=== PATIENT | female | born 1970 | race Caucasian/White ===

== ENCOUNTER → 2017-03-30 | Outpatient (CLI) | payer MEDICAID ==
--- NOTE | 2017-03-30 16:02 | XR ---
Abdomen HISTORY: Abdomen pain, [id number], constipation, R 1013 Single frontal view of the abdomen, no comparisons Spina bifida occulta is noted at L5. There is a spinal curvature. Lung bases are clear. No pneumoperi toneum or bowel obstruction. No pathologic calcification. Probable phleboliths present within the pel vis. IMPRESSION: No acute abnormalities evident.
== END ==
LOC: RADXRYALE 15:10
PROVIDERS: ATTEND Family Medicine
DX: R10.13 Epigastric pain (principal); K59.00 Constipation, unspecified
CPT/HCPCS: 74000

== ENCOUNTER → 2017-05-22 | Outpatient (CLI) | payer MEDICAID ==
--- NOTE | 2017-05-22 14:32 | CT ---
EXAMINATION TYPE: CT abdomen w con DATE OF EXAM: 05/22/2017 COMPARISON: NONE HISTORY: Epigastric abdominal pain CT DLP: 424 mGycm Automated exposure control for dose reduction was used. TECHNIQUE: Helical acquisition of images was performed from the lung bases through the top of iliac crest to include entire abdomen. CONTRAST: Performed with Oral Contrast and with IV Contrast, patient injected with 100 ml mL of Omnipaque 300. FINDINGS: LUNG BASES: No significant abnormality is appreciated. LIVER/GB: No significant abnormality is appreciated. PANCREAS: No significant abnormality is seen. SPLEEN: No significant abnormality is seen. ADRENALS: No significant abnormality is seen. KIDNEYS: No significant abnormality is seen. BOWEL: No significant abnormality is seen. LYMPH NODES: No significant abnormality is seen. OSSEOUS STRUCTURES: Bilateral spondylolysis L5. Degenerative disc disease L5-S1. OTHER: Atherosclerotic change of the aorta. IMPRESSION: NO ACUTE PROCESS. MULTIPLE VARICES ARE SEEN IN THE REGION OF THE LEFT UPPER QUADRANT NEAR THE RENAL B ED.
== END | disposition home or self-care (01) ==
LOC: RADCTMAIN 12:51
PROVIDERS: ATTEND Family Medicine
DX: R19.7 Diarrhea, unspecified (principal); R10.13 Epigastric pain; I86.8 Varicose veins of other specified sites
CPT/HCPCS: 74160; Q9967

== ENCOUNTER 2018-10-19 05:10 | Emergency (ER) | payer MEDICAID ==
[2018-10-19] MEDS ORDERED: METOCLOPRAMIDE 5 MG/ML 2 ML VIAL IVP STA (06:23)
[2018-10-19] MEDS ORDERED: diphenhydrAMINE 50 MG/ML 1 ML VIAL IVP STA (06:23)
[2018-10-19] MEDS ORDERED: SODIUM CHLORIDE 0.9% 1,000 ML IV ONE (06:23)
[2018-10-19] MEDS ORDERED: KETOROLAC 30 MG/ML 1 ML VIAL IVP STA (06:23)
[2018-10-19] MEDS ORDERED: IPRATROPIUM-ALBUTEROL 3 ML NEB INHALATION STA (06:31)
--- NOTE | 2018-10-19 06:31 | ED ---
Headache HPI - General Chief Complaint: Headache Stated Complaint: headache, fever Time Seen by Provider: 10/19/18 05:31 Mode of arrival: ambulatory Limitations: no limitations - History of Present Illness Initial Comments: There is a previously healthy 48-year-old female presents the emergency department today for evaluation of fevers and headaches. Patient reports that she's been suffering from upper respiratory symptoms, congestion, fullness in her ears and nonproductive cough. She was seen and evaluated by her primary care physician, influenza swab was negative she was diagnosed with bronchitis she was treated with IM injection of steroids and prescribed azithromycin. Patient reports she's been compliant with these medications for the past 24 hours. Despite being compliant with medications patient reports she continues to have a headache which she describes as fullness in her head worse when she tries to blow her nose she can feel pressure in her ears she also feels pressure in her sinuses. Patient reports that she continues to have intermittent fevers as high as 102. She's been alternating Tylenol Motrin. She has not tried Excedrin for the headache she's not tried any decongestants or Flonase. She did use Afrin one time last night with minimal improvement in her symptoms. - Related Data Home Medications Medication Instructions Recorded Confirmed Azithromycin [Zithromax Z-pack] See Taper PO DAILY 10/19/18 10/19/18 Previous Rx's Medication Instructions Recorded Fluticasone Nasal [place] [Flonase 2 spr EA NOSTRIL DAILY #1 bottle 10/19/18 Nasal [place]] Loratadine [Claritin] 10 mg PO DAILY #30 tab 10/19/18 guaiFENesin [Mucinex] 600 mg PO BID #30 tab 10/19/18 Allergies Allergy/AdvReac Type Severity Reaction Status Date / Time amoxicillin Allergy Vomiting Verified 10/19/18 06:59 cephalexin [From Keflex] Allergy Vomiting Verified 10/19/18 06:59 oral steriods Allergy Vomiting Uncoded 10/19/18 05:21 Review of Systems ROS Statement: Those systems with pertinent positive or pertinent negative responses have been documented in the HPI. ROS Other: All systems not noted in ROS Statement are negative. Past Medical History Past Medical History: No Reported History History of Any Multi-Drug Resistant Organisms: None Reported Past Surgical History: Section Past Psychological History: No Psychological Hx Reported Smoking Status: Current every day smoker Past Alcohol Use History: None Reported Past Drug Use History: None Reported General Exam - General Exam Comments Initial Comments: Physical Exam GENERAL: Patient is well-developed and well-nourished. Patient is nontoxic and well- hydrated and is in no distress. HENT: Normocephalic, Atraumatic. EYES: PERRL, EOMI PULMONARY: Unlabored respirations. No audible rales rhonchi or wheezing was noted. CARDIOVASCULAR: There is a regular rate and rhythm without any murmurs gallops or rubs. ABDOMEN: Soft and nontender with normal bowel sounds. SKIN: Skin is clear with no lesions or rashes and otherwise unremarkable. : Deferred NEUROLOGIC: Patient is alert and oriented x3. Moving all extremities spontaneously MUSCULOSKELETAL: Normal extremities with adequate strength and full range of motion. No lower extremity swelling or edema. No calf tenderness. PSYCHIATRIC: Normal psychiatric evaluation. Limitations: no limitations Limitations: no limitations Course Vital Signs 10/19/18 10/19/18 10/19/18 05:16 07:21 07:29 Temperature 99.8 F H Pulse Rate 92 78 79 Respiratory 16 16 16 Rate Blood Pressure 104/63 O2 Sat by Pulse 97 Oximetry Medical Decision Making - Medical Decision Making Patient was seen and evaluated history was obtained from the patient was seen and evaluated by primary care yesterday was influenza negative chest x-ray was unremarkable she was treated with steroids patient has persistent fevers URI-like symptoms as well as headache Patient with no meningeal signs for range of motion of the neck Does have some tenderness to palpation of maxillary and frontal sinuses as well as fullness in the ears, inflamed nasal turbinates I suspect patient's symptoms are due to dehydration and viral URI labs IV fluids were ordered Patient does have mild expiratory wheezing DuoNeb was ordered She was reevaluated she reports feeling better after medications and DuoNeb Labs are reviewed patient has leukopenia likely related to viral suppression access patient's agreeable to plan for discharge home supportive care for sinus congestion return parameters were discussed and questions pertaining care were answered. Discharged home in stable condition - Lab Data Result diagrams: 10/19/18 06:30 10/19/18 06:30 Lab Results 10/19/18 10/19/18 10/19/18 Range/Units 06:30 06:30 06:35 WBC 3.2 L (3.8-10.6) k/uL RBC 4.86 (3.80-5.40) m/uL Hgb 15.3 (11.4-16.0) gm/dL Hct 44.1 (34.0-46.0) % MCV 90.8 (80.0-100.0) fL MCH 31.4 (25.0-35.0) pg MCHC 34.6 (31.0-37.0) g/dL RDW 12.2 (11.5-15.5) % Plt Count 98 L (150-450) k/uL Neutrophils % 69 % Lymphocytes % 19 % Monocytes % 9 % Eosinophils % 1 % Basophils % 0 % Neutrophils # 2.2 (1.3-7.7) k/uL Lymphocytes # 0.6 L (1.0-4.8) k/uL Monocytes # 0.3 (0-1.0) k/uL Eosinophils # 0.0 (0-0.7) k/uL Basophils # 0.0 (0-0.2) k/uL Manual Slide Review Performed Sodium 140 (137-145) mmol/L Potassium 4.4 (3.5-5.1) mmol/L Chloride 106 (98-107) mmol/L Carbon Dioxide 27 (22-30) mmol/L Anion Gap 7 mmol/L BUN 12 (7-17) mg/dL Creatinine 0.67 (0.52-1.04) mg/dL Est GFR (CKD-EPI)AfAm >90 (>60 ml/min/1.73 sqM) Est GFR (CKD-EPI)NonAf >90 (>60 ml/min/1.73 sqM) Glucose 96 (74-99) mg/dL Calcium 9.3 (8.4-10.2) mg/dL Total Bilirubin 0.7 (0.2-1.3) mg/dL AST 62 H (14-36) U/L ALT 64 H (9-52) U/L Alkaline Phosphatase 69 (38-126) U/L Total Protein 7.5 (6.3-8.2) g/dL Albumin 4.4 (3.5-5.0) g/dL Urine Color Urine Appearance (Clear) Urine pH (5.0-8.0) Ur Specific [place] (1.001-1.035) Urine Protein (Negative) Urine Glucose (UA) (Negative) Urine Ketones (Negative) Urine Blood (Negative) Urine Nitrite (Negative) Urine Bilirubin (Negative) Urine Urobilinogen (<2.0) mg/dL Ur Leukocyte Esterase (Negative) Urine RBC (0-5) /hpf Urine WBC (0-5) /hpf Ur Squamous Epith Cells (0-4) /hpf Urine Mucus (None) /hpf Urine HCG, Qual Not Detected (Not Detectd) 10/19/18 Range/Units 06:35 WBC (3.8-10.6) k/uL RBC (3.80-5.40) m/uL Hgb (11.4-16.0) gm/dL Hct (34.0-46.0) % MCV (80.0-100.0) fL MCH (25.0-35.0) pg MCHC (31.0-37.0) g/dL RDW (11.5-15.5) % Plt Count (150-450) k/uL Neutrophils % % Lymphocytes % % Monocytes % % Eosinophils % % Basophils % % Neutrophils # (1.3-7.7) k/uL Lymphocytes # (1.0-4.8) k/uL Monocytes # (0-1.0) k/uL Eosinophils # (0-0.7) k/uL Basophils # (0-0.2) k/uL Manual Slide Review Sodium (137-145) mmol/L Potassium (3.5-5.1) mmol/L Chloride (98-107) mmol/L Carbon Dioxide (22-30) mmol/L Anion Gap mmol/L BUN (7-17) mg/dL Creatinine (0.52-1.04) mg/dL Est GFR (CKD-EPI)AfAm (>60 ml/min/1.73 sqM) Est GFR (CKD-EPI)NonAf (>60 ml/min/1.73 sqM) Glucose (74-99) mg/dL Calcium (8.4-10.2) mg/dL Total Bilirubin (0.2-1.3) mg/dL AST (14-36) U/L ALT (9-52) U/L Alkaline Phosphatase (38-126) U/L Total Protein (6.3-8.2) g/dL Albumin (3.5-5.0) g/dL Urine Color Yellow Urine Appearance Clear (Clear) Urine pH 5.5 (5.0-8.0) Ur Specific [place] 1.025 (1.001-1.035) Urine Protein 1+ H (Negative) Urine Glucose (UA) Negative (Negative) Urine Ketones 2+ H (Negative) Urine Blood Moderate H (Negative) Urine Nitrite Negative (Negative) Urine Bilirubin Negative (Negative) Urine Urobilinogen <2.0 (<2.0) mg/dL Ur Leukocyte Esterase Small H (Negative) Urine RBC 16 H (0-5) /hpf Urine WBC 4 (0-5) /hpf Ur Squamous Epith Cells 2 (0-4) /hpf Urine Mucus Many H (None) /hpf Urine HCG, Qual (Not Detectd) Disposition Clinical Impression: URI (upper respiratory infection) Disposition: HOME SELF-CARE Condition: Good Instructions (If sedation given, give patient instructions): Cold Symptoms (ED) Is patient prescribed a controlled substance at d/c from ED?: No Referrals: Davian Talley DO [Primary Care Provider] - 1-2 days
[2018-10-19 06:58] LABS: Basophils % (A) 0 %; Eosinophils % (A) 1 %; HCT 44.1 % (34.0-46.0); HGB 15.3 gm/dL (11.4-16.0); Lymphocytes # (A) 0.6 k/uL (1.0-4.8); Lymphocytes % (A) 19 %; MCH 31.4 pg (25.0-35.0); MCHC 34.6 g/dL (31.0-37.0); MCV 90.8 fL (80.0-100.0); Mean Platelet Volume 6.9; Monocytes # (A) 0.3 k/uL (0-1.0); Monocytes % (A) 9 %; Neutrophils # (A) 2.2 k/uL (1.3-7.7); Neutrophils % (A) 69 %; RBC 4.86 m/uL (3.80-5.40); RDW 12.2 % (11.5-15.5); WBC 3.2 k/uL (3.8-10.6)
[2018-10-19 07:00] LABS: Appearance,Urine Clear (Clear); Bilirubin,Urine Negative (Negative); Blood,Urine Moderate (Negative); Color,Urine Yellow; Glucose,Urine (UA) Negative (Negative); Ketones,Urine 2+ (Negative); Leukocyte Esterase,Urine Small (Negative); Mucus,Urine Many /hpf; Nitrite,Urine Negative (Negative); PH, Urine 5.5 (5.0-8.0); Protein,Urine 1+ (Negative); RBC,Urine 16 /hpf (0-5); Specific Gravity,Urine 1.025 (1.001-1.035); Squamous Epithelial Cell,Urine 2 /hpf (0-4); Urobilinogen,Urine <2.0 mg/dL (<2.0); WBC,Urine 4 /hpf (0-5)
[2018-10-19 07:08] LABS: ALT 64 U/L (9-52); AST 62 U/L (14-36); Albumin 4.4 g/dL (3.5-5.0); Alkaline Phosphatase 69 U/L (38-126); Anion Gap 7 mmol/L; Blood Urea Nitrogen 12 mg/dL (7-17); Calcium 9.3 mg/dL (8.4-10.2); Carbon Dioxide 27 mmol/L (22-30); Chloride 106 mmol/L (98-107); Glucose 96 mg/dL (74-99); Potassium 4.4 mmol/L (3.5-5.1); Sodium 140 mmol/L (137-145); Total Bilirubin 0.7 mg/dL (0.2-1.3); Total Protein 7.5 g/dL (6.3-8.2)
[2018-10-19 07:33] LABS: Platelet Count 98 k/uL (150-450)
[2018-10-19 07:54] VITALS: BP 97/60; PULSE 82; RESP 18; TEMP 98.8
== END 2018-10-19 07:45 | disposition home or self-care (01) ==
LOC: EC 05:10
DX: J06.9 Acute upper respiratory infection, unspecified (principal); D72.819 Decreased white blood cell count, unspecified; F17.200 Nicotine dependence, unspecified, uncomplicated; Z88.0 Allergy status to penicillin; Z88.1 Allergy status to other antibiotic agents; Z88.8 Allergy status to other drugs, medicaments and biological substances
CPT/HCPCS: 36415; 94640; 80053; 85025; 81001; 81025; 99284; 96374; 96375 ×2; 96361; J1200; J2765; J1885

== ENCOUNTER → 2018-12-14 | Outpatient (CLI) | payer MEDICAID ==
--- NOTE | 2018-12-14 08:09 | CT ---
EXAMINATION TYPE: CT sinus wo con DATE OF EXAM: 12/14/2018 COMPARISON: 01/17/2015 CT brain HISTORY: Chronic sinusitis CT DLP: 635.1 mGycm. Automated Exposure Control for Dose Reduction was Utilized. TECHNIQUE: CT scan of the sinuses is performed without contrast, axial images are obtained, coronal r eformatted images are also reviewed. FINDINGS: There is trace mucosal thickening of the medial wall of the left maxillary sinus such as on coronal series 6 image 25. Few inspissated secretions are seen within the ethmoid sinuses. The sphen oid sinuses, frontal sinuses and visualized mastoid air cells are well aerated. No middle ear cavity fluid is seen. The ostiomeatal complexes are patent although slightly narrowed secondary to mucosal t hickening. No Bryan cells or delmer bullosa. There is rightward nasal septal deviation. Very minimal left inferior nasal turbinate mucosal hypertrophy is seen. Frontal recesses are patent. Exam is not optimized for evaluation of the intracranial structures. Orbits are grossly symmetric. Osseous struct ures are grossly intact. IMPRESSION: 1. Trace mucosal thickening within the left maxillary sinus, ethmoid sinuses, and along the ostiomeat al complexes slightly narrowing the bilateral ostiomeatal complexes although they remain patent. 2. Mild rightward nasal septal deviation. 3. Very minimal left inferior nasal turbinate mucosal hypertrophy.
== END | disposition home or self-care (01) ==
LOC: RADCTMAIN 07:44
PROVIDERS: ATTEND Otolaryngology
DX: J34.3 Hypertrophy of nasal turbinates (principal); J34.2 Deviated nasal septum; J32.9 Chronic sinusitis, unspecified
CPT/HCPCS: 70486

== ENCOUNTER → 2021-12-09 | Outpatient (CLI) | payer BC ==
--- NOTE | 2021-12-09 12:23 | XR ---
EXAMINATION TYPE: XR chest 2V DATE OF EXAM: 12/09/2021 COMPARISON: NONE HISTORY: Palpitations and chest pain TECHNIQUE: Frontal and lateral views of the chest are obtained. FINDINGS: There is no focal air space opacity, pleural effusion, or pneumothorax seen. The cardiac silhouette size is within normal limits. Prominent lung volumes noted. The osseous structures are in tact, there is a mild spinal curvature. IMPRESSION: No acute cardiopulmonary process.
== END | disposition home or self-care (01) ==
LOC: RADXRYALE 09:43
PROVIDERS: ATTEND Family Medicine
DX: R00.2 Palpitations (principal); R07.89 Other chest pain
CPT/HCPCS: 71046

== ENCOUNTER → 2021-12-13 | Outpatient (CLI) | payer BC ==
--- NOTE | 2021-12-19 15:14 | P.HOLTER ---
48 Hour Holter monitor note: Patient wore a Holter monitor for 48 hrs from 12/13/2021 until 12/15/2021. Findings: Patient's baseline heart rate was sinus rhythm. There were no signficant atrial fibrillation, atrial flutter, or ventricular tachycardia episodes. There were no significant pauses greater than 2 seconds. Patient's minimum heart rate was 43 bpm. Patient's maximum heart rate was 112 bpm. Patient's average heart rate was 69 bpm. There were a total of 207 PACs which represented 0.1% PAC burden. There are a total of 16 PVCs worse represented less than 0.01% PVC burden. Patient activated event of fluttering and rapid heart rate corresponded with normal sinus rhythm. Conclusions: 48 hour Holter monitor showing normal sinus rhythm, sinus bradycardia. Rare PACs and PVCs which were asymptomatic. Patient activated events of fluttering and rapid heart rate corresponded with normal sinus rhythm.
--- NOTE | 2021-12-20 09:17 | HM ---
48 Hour Holter monitor note: Patient wore a Holter monitor for 48 hrs from 12/13/2021 until 12/15/2021. Findings: Patient's baseline heart rate was sinus rhythm. There were no significant atrial fibrillation, atrial flutter, or ventricular tachycardia episodes. There were no significant pauses greater than 2 seconds. Patient's minimum heart rate was 43 bpm. Patient's maximum heart rate was 112 bpm. Patient's average heart rate was 69 bpm. There were a total of 207 PACs which represented 0.1% PAC burden. There are a total of 16 PVCs worse represented less than 0.01% PVC burden. Patient activated event of fluttering and rapid heart rate corresponded with normal sinus rhythm. Conclusions: 48 hour Holter monitor showing normal sinus rhythm, sinus bradycardia. Rare PACs and PVCs which were asymptomatic. Patient activated events of fluttering and rapid heart rate corresponded with normal sinus rhythm. MTDD
== END | disposition home or self-care (01) ==
LOC: RADECHMAIN 07:01
PROVIDERS: ATTEND Family Medicine
DX: I49.3 Ventricular premature depolarization (principal); I49.1 Atrial premature depolarization
CPT/HCPCS: 93225; 93226

== ENCOUNTER → 2021-12-24 | Outpatient (CLI) | payer BC ==
--- NOTE | 2021-12-24 16:12 | US ---
EXAMINATION TYPE: US duplex aorta DATE OF EXAM: 12/24/2021 COMPARISON: NONE CLINICAL HISTORY: R07.89 Other Chest Pain R00.2 PALPITATIONS. EXAM MEASUREMENTS: Abdominal Aorta: Proximal: 1.7 cm Mid: 1.4 Distal: 1.1 Bifurcation: Right: 0.7 Left: 0.6 Some mild atherosclerotic changes. Right iliac mostly obscure by overlying bowel gas. Celiac axis and superior mesenteric artery takeoff appear normal IMPRESSION: 1. No aneurysmal dilatation abdominal aorta
== END | disposition home or self-care (01) ==
LOC: RADUSWWP 13:56
PROVIDERS: ATTEND Family Medicine
DX: R00.2 Palpitations (principal); R07.89 Other chest pain
CPT/HCPCS: 93979

== ENCOUNTER → 2022-05-16 | Outpatient (CLI) | payer BC ==
--- NOTE | 2022-05-16 08:48 | CT ---
EXAMINATION TYPE: CT chest wo con DATE OF EXAM: 05/16/2022 COMPARISON: Radiograph 04/28/2022 HISTORY: 51-year-old female R06.02, Shortness of breath TECHNIQUE: Contiguous axial scanning of the chest without IV contrast. Coronal and sagittal reconstru ctions performed. CT DLP: 115.9 mGycm Automated exposure control for dose reduction was used. FINDINGS: Heart normal size without pericardial effusion. Aorta normal caliber with conventional arch vessel branching anatomy. No thoracic lymphadenopathy by CT size criteria. Mild centrilobular emphysema. Mild biapical pleural-parenchymal scarring. No consolidation or pleural effusion. Visualized upper abdomen shows no gross abnormality. Bones: Gentle S-shaped angulation of the thoracolumbar spine. IMPRESSION: 1. COPD WITH MILD EMPHYSEMA. 2. NO ACUTE PULMONARY PROCESS.
== END | disposition home or self-care (01) ==
LOC: RADECHMAIN 07:44
PROVIDERS: ATTEND Family Medicine
DX: J44.9 Chronic obstructive pulmonary disease, unspecified (principal)
CPT/HCPCS: 71250; 93270

== ENCOUNTER → 2022-05-30 | Outpatient (CLI) | payer BC ==
--- NOTE | 2022-05-30 15:24 | CA ---
Transthoracic Echo Report Name: Anastasia Whitaker Age: 51 Gender: F : 1970 Exam Date: 05/30/2022 13:48 Exam Location: [place] [facility] Ht (in): 66 Wt (lb): 109 Ordering Physician: Davian Talley DO Attending/Referring Phys: Retanner Lydia Tamez RDCS Procedure CPT: Indications: R06.02 SOB, I49.3 Ventricular premature depolariza Cardiac Hx: Technical Quality: Good Contrast 1: Total Dose (mL): Contrast 2: Total Dose (mL): MEASUREMENTS (Male / Female) Normal Values 2D ECHO LV Diastolic Diameter PLAX 3.4 cm 4.2 - 5.9 / 3.9 - 5.3 cm LV Systolic Diameter PLAX 2.3 cm IVS Diastolic Thickness 0.9 cm 0.6 - 1.0 / 0.6 - 0.9 cm LVPW Diastolic Thickness 0.9 cm 0.6 - 1.0 / 0.6 - 0.9 cm LV Relative Wall Thickness 0.5 RV Internal Dim ED PLAX 2.4 cm LA Systolic Diameter LX 2.7 cm 3.0 - 4.0 / 2.7 - 3.8 cm LA Volume 22.1 cm??? 18 - 58 / 22 - 52 cm??? M-MODE Aortic Root Diameter MM 2.6 cm MV E Point Septal Separation 0.2 cm AV Cusp Separation MM 2.1 cm DOPPLER AV Peak Velocity 118.0 cm/s AV Peak Gradient 5.6 mmHg MV Area PHT 3.8 cm??? Mitral E Point Velocity 85.8 cm/s Mitral A Point Velocity 77.2 cm/s Mitral E to A Ratio 1.1 MV Deceleration Time 202.0 ms TR Peak Velocity 206.7 cm/s TR Peak Gradient 17.1 mmHg Right Ventricular Systolic Press 22.1 mmHg FINDINGS Left Ventricle Left ventricular ejection fraction is estimated at 60-65 %. Left ventricular cavity size normal. Left ventricular wall thickness normal. Right Ventricle Normal right ventricular size and function. Right ventricular systolic pressure within normal limits. Right Atrium Normal right atrial size. Left Atrium Normal left atrial size. No evidence for an atrial septal defect. Mitral Valve Structurally normal mitral valve. No mitral stenosis, regurgitation or prolapse. Aortic Valve Trileaflet aortic valve. No aortic valve stenosis or regurgitation. Tricuspid Valve Structurally normal tricuspid valve. Trace to mild tricuspid regurgitation. Pulmonic Valve Trace pulmonic regurgitation. Pericardium Normal pericardium. No pericardial effusion. Aorta Normal size aortic root and proximal ascending aorta. CONCLUSIONS Normal LV systolic function Previewed by: Dr. Ayan Pastrana MD (Electronically Signed) Final Date: 30 May 2022 15:23
== END | disposition home or self-care (01) ==
LOC: RADECHMAIN 13:31
PROVIDERS: ATTEND Family Medicine
DX: I49.3 Ventricular premature depolarization (principal); R06.02 Shortness of breath
CPT/HCPCS: 93306

== ENCOUNTER → 2023-01-06 | Outpatient (CLI) | payer BC ==
--- NOTE | 2023-01-06 12:42 | XR ---
EXAMINATION TYPE: XR abdomen 1V DATE OF EXAM: 01/06/2023 12:04 PM INDICATION: Patient age:Female; 52 years old; Reason for study: [id number],R110 EPIGASTRIC PAIN,NAUSEA; [facility]. COMPARISON: 03/30/2017. TECHNIQUE: One radiographic view of the abdomen was obtained. FINDINGS: Scoliosis changes to the spine with and without additional component. Mild to moderate amou nt stool present. Nonfusion posterior arch of L5. The bowel gas pattern is nonspecific without dilate d loops of small or large bowel. There is no evidence for organomegaly or pneumoperitoneum. The osse ous structures are intact. No abnormal calcifications are present. Fecal material and gas are demons trated throughout the colon and rectum. IMPRESSION: Nonspecific bowel gas pattern without radiographic evidence for acute process.
== END | disposition home or self-care (01) ==
LOC: RADXRYALE 11:54
PROVIDERS: ATTEND Family Medicine
DX: R10.816 Epigastric abdominal tenderness (principal); R11.0 Nausea; R14.0 Abdominal distension (gaseous)
CPT/HCPCS: 74018

== ENCOUNTER → 2023-04-06 | Outpatient (CLI) | payer BC ==
--- NOTE | 2023-04-06 12:06 | XR ---
EXAM TYPE: LUMBAR SPINE X RAY SERIES COMPARISON: NONE HISTORY: Pain TECHNIQUE: 4 views are submitted. FINDINGS: Alignment is anatomic. The pedicles are intact. The transverse processes are intact. There is diff use osteopenia with grade 1 anterolisthesis L5 on S1 with suspected bilateral spondylolysis. Vacuum d isc and severe degenerative disc disease. Moderate degenerative disc disease L2-L5. Spina bifida occu lta L5 noted. IMPRESSION: 1. Diffuse osteopenia with severe degenerative disc disease L5-S1. Grade 1 anterolisthesis secondary to bilateral spondylolysis. 2. Moderate multilevel additional degenerative disc disease.
== END | disposition home or self-care (01) ==
LOC: RADXRYALE 11:36
PROVIDERS: ATTEND Family Medicine
DX: M51.37 Other intervertebral disc degeneration, lumbosacral region (principal); M43.16 Spondylolisthesis, lumbar region; M47.816 Spondylosis without myelopathy or radiculopathy, lumbar region; M85.88 Other specified disorders of bone density and structure, other site
CPT/HCPCS: 72110

== ENCOUNTER → 2023-06-29 | Outpatient (CLI) | payer BC ==
--- NOTE | 2023-06-29 10:49 | XR ---
EXAMINATION TYPE: XR Hip Complete LT DATE OF EXAM: 06/29/2023 10:45 AM INDICATION: Patient age:Female; 52 years old; Reason for study: [id number] LT HIP PAIN; [facility]. COMPARISON: None TECHNIQUE: The left hip was examined in the frontal and lateral projections . FINDINGS: No evidence of any acute osseous pathology, joint dislocation, or soft tissue swelling. No significant joint space narrowing or spurring. Few pelvic phleboliths. IMPRESSION: No acute osseous pathology.
== END | disposition home or self-care (01) ==
LOC: RADXRYALE 10:29
PROVIDERS: ATTEND Family Medicine
DX: M25.552 Pain in left hip (principal)
CPT/HCPCS: 73502

== ENCOUNTER → 2023-07-07 | Outpatient (CLI) | payer BC ==
--- NOTE | 2023-07-07 14:39 | MR ---
EXAMINATION TYPE: MR lumbar spine wo con DATE OF EXAM: 07/07/2023 COMPARISON: None HISTORY: Lower back pain, LLE radiculopathy. CONTRAST: None TECHNIQUE: Multiplanar, multisequence images of the lumbar spine were acquired. FINDINGS: Cord terminates at the L1 level L5-S1: Subligamentous disc herniation is present with extension beyond the endplates. This has mild c entral anterior thecal sac compression. No spinal canal stenosis. Disc bulge extends into the forame n contributing to severe foraminal stenosis. Minimal grade 1 spondylolisthesis of L5 anterior to S1 m ay be present. L4-L5: No significant disc bulge or disc herniation. No spinal canal stenosis. No foraminal stenosi s. L3-L4: No significant disc bulge or disc herniation. No spinal canal stenosis. No foraminal stenosi s. L2-L3: No significant disc bulge or disc herniation. No spinal canal stenosis. No foraminal stenosi s. L1-L2: No significant disc bulge or disc herniation. No spinal canal stenosis. No foraminal stenosi s. T12-L1: No significant disc bulge or disc herniation. No spinal canal stenosis. No foraminal stenos is. IMPRESSION: 1. Subligamentous disc herniation L5-S1 with mild anterior thecal sac compression. No AP spinal canal stenosis is present. Severe bilateral foraminal stenosis is present. Minimal grade 1 spondylolisthes is of L5 anteriorly on S1 is present.
== END | disposition home or self-care (01) ==
LOC: RADMRIMAIN 10:22
PROVIDERS: ATTEND Family Medicine
DX: M51.17 Intervertebral disc disorders with radiculopathy, lumbosacral region (principal); M48.061 Spinal stenosis, lumbar region without neurogenic claudication; M43.17 Spondylolisthesis, lumbosacral region
CPT/HCPCS: 72148

== ENCOUNTER → 2023-08-20 | Outpatient (CLI) | payer BC ==
[2023-08-20 08:46] VITALS: BP 132/80; PULSE 73; RESP 16; TEMP 98.9
--- NOTE | 2023-08-20 15:04 | P.PAINPG ---
PQRS Measure Charge Sheet Comment: HISTORY OF PRESENT ILLNESS: A 53 yr old female w at side as a referral from Dr Briones presents today w severe and chronic LBP secondary to DDD, spondylosis and facet arthropathy for evaluation. Pt states pain level is provoked at 9/10 in intensity, constant, localized in the lower lumbar spine, predominantly axial, sharp in character w occasional shooting pain towards the L buttocks and L foot. Pain is provoked by standing/ walking for periods > 20 min, and lifting. Pain is alleviated by PT x 4 wks in Apr 2023, heat, medications (Ibu), topicals, repositioning and rest. Oswestry axial pain score at 21. PMH: OA PSH: Section SH: Daily tobacco use, Occasional ETOH use, No illicit drug use FH: Non contributory All: See list Meds: See list REVIEW OF ORGAN SYSTEMS: CONSTITUTIONAL: No fevers or chills. No recent weight loss. NEUROLOGICAL: + numbness and tingling along the distal extremities. No seizure disorders or headaches. MUSCULOSKELETAL: + pain PSYCHIATRIC: Denies current depression or suicidal thoughts. Physical Examinations : Constitutional : Cooperative , not in acute distress . Neurologic : Cranial nerve II to XII intact. No focal neurological deficits. Psychiatric : alert & oriented x 3. Matching mood & appropriate affect. Judgment & insight intact. Musculoskeletal : Cervical Spine Motor strength in the deltoid and biceps: Normal right side. Normal Left side Motor strength biceps and the wrist extensors: Normal right side . Normal left side Motor strength in the triceps muscle: Normal right side. Normal left side Deep tendon reflexes: Normal at the biceps. Normal at Brachioradialis. Normal at triceps Vertebral body tenderness to deep palpation over Cervical facet loading test: positive bilaterally Spurling test: positive bilaterally Neck distraction test: positive bilater ally Berna sign: positive bilaterally Lumbar spine Motor strength lower extremities ,thigh and legs 5/5 Right side , 5/5 Left side Deep tendon reflexes : Normal Knee Jerk. Normal Ankle Jerk Vertebral body tenderness over L5 Madrigal Test positive over L L5-S1 Lumbar facet Loading Test: positive Right / positive Left Range of motion of the lumbar spine Flexion 30 degrees, extension 10 degrees Straight Leg Raise test: Left/ Right positive at degree Magnus test: positive right / positive left. Severe tenderness over the Sacroiliac joint on the Right / Left sides Gaenslen test: positive bilaterally Seated flexion test: positive bilaterally. Sacral spine : Severe tenderness over the Sacroiliac joint: right side / left side Range of motion: Flexion of the lumbar spine <60 degrees Range of motion: Extension of the lumbar spine <20 degrees Gaenslen's Test positive Magnus test: positive right side / left side Thigh Thrust Test Sacral Thrust Test Imaging: Lumbar x-ray from 04/06/23 reviewed L hip x-ray from 06/29/23 reviewed MRI noncontrast of the lumbar spine from 07/07/23 reviewed Assessment/ Plan : Lumbar DDD Recommendation of NANCY L5-S1 #1. May need a series of injections for optimal pain relief. Risks, benefits of procedure discussed and patient verbalized understanding. Admits to anti- coagulant use or medical history of diabetes. Protocol for discontinuation/ continuation of medications yoon procedure discussed. All questions answered. I have spent greater than 30 minutes on patient care today. Dr Dior was available by phone for the evaluation of this patient. The time was used to review the medical records including relevant urine studies and Prescription history (MAPs), review of the available imaging, evaluation and examination of the patient, coordination of care with the medical staff and if applicable referring physicians, as well as creation of the medical record PQRS Narrative: Smoking Status Current every day smoker Home Medications: Ambulatory Orders Azithromycin [Zithromax Z-pack] See Taper PO DAILY 10/19/18 Fluticasone Nasal [place] [Flonase Nasal [place]] 2 spr EA NOSTRIL DAILY #1 bottle 10/19/18 Loratadine [Claritin] 10 mg PO DAILY #30 tab 10/19/18 guaiFENesin [Mucinex] 600 mg PO BID #30 tab 10/19/18 Controlled Substance Measures - Controlled Substance Measures Is patient prescribed a controlled substance at discharge?: No
== END ==
LOC: PNWHC3 07:42
PROVIDERS: ATTEND Specialist
DX: M51.16 Intervertebral disc disorders with radiculopathy, lumbar region (principal); M19.90 Unspecified osteoarthritis, unspecified site; F17.200 Nicotine dependence, unspecified, uncomplicated; Z88.0 Allergy status to penicillin; Z88.1 Allergy status to other antibiotic agents; Z88.8 Allergy status to other drugs, medicaments and biological substances
CPT/HCPCS: 99211

== ENCOUNTER 2023-09-03 08:09 | Day surgery (SDC) | payer BC ==
[2023-08-27 13:52] VITALS: BMI 17.6
[~2023-09-03 08:09] MED LIST: LACTATED RINGERS 1,000 ML IV SCH
[2023-09-03 08:59] VITALS: TEMP 98
[2023-09-03] MEDS ORDERED: methylPREDNISolone ACETATE 80 MG/ML 1 ML VIAL ONE (09:32)
[2023-09-03] MEDS ORDERED: IOPAMIDOL M200 10 ML VIAL ONE (09:32)
--- NOTE | 2023-09-03 09:37 | P.PCN ---
Date of Procedure: 09/03/23 Procedure(s) Performed: PREOPERATIVE DIAGNOSIS: 1- Lumbar herniated Disc Diseases 2-Lumbar spondylosis with Facet arthropathy without myelopathy. 3-lumbar foraminal stenosis POSTOPERATIVE DIAGNOSIS: 1-lumbar herniated disc disease. 2-lumbar spondylosis with facet arthropathy without myelopathy. 3-lumbar foraminal stenosis. PROCEDURE 1. Lumbar epidural steroid injection under fluoroscopic guidance at the L5-S1 level. (Fluoroscopy imaging was available in radiology department) 2. Lumbar epidurogram. ANESTHESIA: Lidocaine 1% 3 and then only. EBL: Minimal PROCEDURE INDICATION: The patient with low back pain and radiculitis symptoms unresponsive to conservative treatment. Fluoroscopy was used to optimize visualization of the needle placement and to maximize safety. PROCEDURE DESCRIPTION / TECHNIQUE: The patient was seen and identified in the preoperative area. Risks, benefits, complications including but not limited to infections ,bleeding ,allergic reaction to the medications ,nerve damage and not complete pain releife , and alternatives were discussed with the patient. The patient agreed to proceed with the procedure and signed the consent, and vital signs were stable. Patient was taken to the OR and time out was completed. The patient was placed in the prone position on procedure table and a pillow was placed under the abdomen to reduce lumbar lordosis. The lumbosacral area was prepped and draped in the usual sterile fashion.ere closely monitored during the procedure. Vital signs was monitered during the entire procedure. Using anterior-posterior fluoroscopy, the L5-S1 interlaminar space was identified and the skin over this site was marked and then infiltrated with 1% lidocaine subcutaneously. Subsequently, a 20-gauge Tuohy epidural needle was inserted and advanced toward the epidural space using the ``Loss of resistance technique and guided by AP and lateral fluoroscopy. The correct needle position in the epidural space was verified with the injection of 2 mL of the water soluble contrast dye Isovue 200 contrast and observing an excellent epidurogram with the epidural spread of the dye, after negative aspiration for blood and CSF and in the absence of paresthesias. Again after negative aspiration, a 6 ml mixture containing 80 mg of Depo-medrol ( Preservetive Free ), and 2 ml of preservative free Normal Saline, and 2 ml of preservative free lidocaine 1% solution was injected and a washout of epidurogram was seen. Needle was withdrawn intact, skin was cleansed, and bandages were applied. COMPLICATIONS: None DISPOSITION / PLANS: The patient was placed in a supine position and transferred to the recovery area in a stable condition for observation. There was no evidence of lower extremity motor or sensory deficit after the procedure. Patient was discharged from the recovery room after meeting discharge criteria. Home discharge instructions were given to the patient by the staff. The patient was reexamined prior to discharge. The patient will schedule a follow up in the clinic in 2-4 weeks.
[2023-09-03 10:13] VITALS: BP 112/71; PULSE 88; RESP 16
--- NOTE | 2023-09-03 12:16 | FL ---
EXAMINATION TYPE: FL guided pain mgmt statistic Intraoperative/procedural fluoroscopic services were provided. Total fluoroscopy time is 1.8 seconds with a total of 1 submitted images to PACS. Please se e the operative/procedural note for further details. DAP: [id number] mGym2
== END 2023-09-03 10:12 | disposition home or self-care (01) ==
LOC: ORPAIN 08:09
PROVIDERS: ATTEND Specialist
DX: M51.26 Other intervertebral disc displacement, lumbar region (principal); M48.061 Spinal stenosis, lumbar region without neurogenic claudication; M47.816 Spondylosis without myelopathy or radiculopathy, lumbar region; I10 Essential (primary) hypertension; Z79.899 Other long term (current) drug therapy
CPT/HCPCS: 62323; J1040; Q9966

== ENCOUNTER → 2023-09-30 | Outpatient (CLI) | payer BC ==
[2023-09-30 08:38] VITALS: BP 110/74; PULSE 76; RESP 16
--- NOTE | 2023-09-30 11:02 | P.PAINPG ---
PQRS Measure Charge Sheet Comment: HISTORY OF PRESENT ILLNESS: A 53 yr old female w at side presents today w severe and chronic LBP secondary to DDD, spondylosis and facet arthropathy for evaluation s/p NANCY L5-S1 #1. Pt states she experienced 80 % pain relief x 2 wks s/p procedure. Pt states pain level is provoked at 9/10 in intensity, constant, localized in the lower lumbar spine, predominantly axial, sharp in character w occasional shooting pain towards the L buttocks and LLE. Pain is provoked by standing/ walking for periods > 20 min, and lifting. Pain is alleviated by PT x 4 wks in Apr 2023, heat, medications, topicals, repositioning and rest. Oswestry axial pain score at 21. Interventional procedures include NANCY L5-S1 x1 Medications include Ibu REVIEW OF ORGAN SYSTEMS: CONSTITUTIONAL: No fevers or chills. No recent weight loss. NEUROLOGICAL: + numbness and tingling along the distal extremities. No seizure disorders or headaches. MUSCULOSKELETAL: + pain PSYCHIATRIC: Denies current depression or suicidal thoughts. Physical Examinations : Constitutional : Cooperative , not in acute distress . Neurologic : Cranial nerve II to XII intact. No focal neurological deficits. Psychiatric : alert & oriented x 3. Matching mood & appropriate affect. Judgment & insight intact. Musculoskeletal : Cervical Spine Motor strength in the deltoid and biceps: Normal right side. Normal Left side Motor strength biceps and the wrist extensors: Normal right side . Normal left side Motor strength in the triceps muscle: Normal right side. Normal left side Deep tendon reflexes: Normal at the biceps. Normal at Brachioradialis. Normal at triceps Vertebral body tenderness to deep palpation over Cervical facet loading test: positive bilaterally Spurling test: positive bilaterally Neck distraction test: positive bilaterally Berna sign: positive bilaterally Lumbar spine Motor strength lower extremities ,thigh and legs 5/5 Right side , 5/5 Left side Deep tendon reflexes : Normal Knee Jerk. Normal Ankle Jerk Vertebral body tenderness over L5 Madrigal Test positive over L L5-S1 Lumbar facet Loading Test: positive Right / positive Left Range of motion of the lumbar spine Flexion 30 degrees, extension 10 degrees Straight Leg Raise test: Left/ Right positive at degree Magnus test: positive right / positive left. Severe tenderness over the Sacroiliac joint on the Right / Left sides Gaenslen test: positive bilaterally Seated flexion test: positive bilaterally. Sacral spine : Severe tenderness over the Sacroiliac joint: right side / left side Range of motion: Flexion of the lumbar spine <60 degrees Range of motion: Extension of the lumbar spine <20 degrees Gaenslen's Test positive Magnus test: positive right side / left side Thigh Thrust Test Sacral Thrust Test Imaging: Lumbar x-ray from 04/06/23 reviewed L hip x-ray from 06/29/23 reviewed MRI noncontrast of the lumbar spine from 07/07/23 reviewed Assessment/ Plan : Lumbar DDD Recommendation of L paramedian NANCY L5-S1 #2. May need a series of injections for optimal pain relief. Risks, benefits of procedure discussed and patient verbalized understanding. Admits to anti- coagulant use or medical history of diabetes. Protocol for discontinuation/ continuation of medications yoon procedure discussed. All questions answered. I have spent greater than 30 minutes on patient care today. Dr Dior was available by phone for the evaluation of this patient. The time was used to review the medical records including relevant urine studies and Prescription history (MAPs), review of the available imaging, evaluation and examination of the patient, coordination of care with the medical staff and if applicable referring physicians, as well as creation of the medical record PQRS Narrative: Smoking Status Current every day smoker Hx Alcohol Use (MH) No Home Medications: Ambulatory Orders Famotidine [Pepcid AC] 10 mg PO DAILY PRN 08/27/23 Ibuprofen [Motrin Ib] 200 mg PO Q8H PRN 08/27/23 Controlled Substance Measures - Controlled Substance Measures Is patient prescribed a controlled substance at discharge?: No
== END ==
LOC: PNWHC3 07:48
PROVIDERS: ATTEND Specialist
DX: M51.37 Other intervertebral disc degeneration, lumbosacral region (principal); F17.200 Nicotine dependence, unspecified, uncomplicated; Z88.0 Allergy status to penicillin; Z88.1 Allergy status to other antibiotic agents; Z88.8 Allergy status to other drugs, medicaments and biological substances
CPT/HCPCS: 99211

== ENCOUNTER 2023-11-01 09:08 | Emergency (ER) | payer BC ==
[2023-11-01 11:09] VITALS: BP 103/83; PULSE 90; RESP 18; TEMP 98.7
--- NOTE | 2023-11-01 11:12 | ED ---
Fever HPI - General Chief Complaint: Fever Stated Complaint: Fever, headache, neck pain Time Seen by Provider: 11/01/23 09:29 Source: patient, RN notes reviewed Mode of arrival: ambulatory Limitations: no limitations - History of Present Illness Initial Comments: 53-year-old female presents emergency department chief complaint of fever, body aches headache. Symptoms started overnight. Denies any sick contacts. Denies any chest pain shortness of breath states that she has minimal nausea no vomiting no other complaints. - Related Data Home Medications Medication Instructions Recorded Confirmed Famotidine [Pepcid AC] 10 mg PO DAILY PRN 08/27/23 09/30/23 Ibuprofen [Motrin Ib] 200 mg PO Q8H PRN 08/27/23 09/30/23 Allergies Allergy/AdvReac Type Severity Reaction Status Date / Time amoxicillin AdvReac Vomiting Verified 11/01/23 09:13 cephalexin [From Keflex] AdvReac Vomiting Verified 11/01/23 09:13 oral steriods AdvReac Vomiting Uncoded 11/01/23 09:13 Review of Systems ROS Statement: Those systems with pertinent positive or pertinent negative responses have been documented in the HPI. ROS Other: All systems not noted in ROS Statement are negative. Past Medical History Past Medical History: GERD/Reflux History of Any Multi-Drug Resistant Organisms: None Reported Past Surgical History: Section Additional Past Surgical History / Comment(s): D & C Past Anesthesia/Blood Transfusion Reactions: Postoperative Nausea & Vomiting (PONV) Past Psychological History: No Psychological Hx Reported Smoking Status: Vaper Past Alcohol Use History: None Reported Past Drug Use History: None Reported - Past Family History Mother Family Medical History: No Reported History General Exam Limitations: no limitations General appearance: alert, in no apparent distress Head exam: Present: atraumatic, normocephalic, normal inspection Eye exam: Present: normal appearance, PERRL, EOMI. Absent: scleral icterus, conjunctival injection, periorbital swelling ENT exam: Present: normal exam, normal oropharynx, mucous membranes moist Neck exam: Present: normal inspection, full ROM. Absent: tenderness, meningismus, lymphadenopathy Respiratory exam: Present: normal lung sounds bilaterally. Absent: respiratory distress, wheezes, rales, rhonchi, stridor Cardiovascular Exam: Present: regular rate, normal rhythm, normal heart sounds. Absent: systolic murmur, diastolic murmur, rubs, gallop, clicks Neurological exam: Present: alert Psychiatric exam: Present: normal affect, normal mood Course Vital Signs 11/01/23 11/01/23 11/01/23 09:09 09:27 09:30 Temperature 99.5 F 98.8 F Pulse Rate 100 94 Respiratory 18 18 17 Rate Blood Pressure 132/78 101/65 O2 Sat by Pulse 98 99 Oximetry 11/01/23 11/01/23 10:30 11:08 Temperature 98.7 F Pulse Rate 85 90 Respiratory 17 18 Rate Blood Pressure 102/65 103/83 O2 Sat by Pulse 97 98 Oximetry Medical Decision Making - Medical Decision Making Was pt. sent in by a medical professional or institution ([facility], MANAGER MBA, urgent care, hospital, or usp...) When possible be specific @ -No Did you speak to anyone other than the patient for history (EMS, parent, family, police, friend...)? What history was obtained from this source @ -No Did you review nursing and triage notes (agree or disagree)? Why? @ -I reviewed and agree with nursing and triage notes Were old charts reviewed (outside hosp., previous admission, EMS record, old EKG, old radiological studies, urgent care reports/EKG's, usp records)? Report findings @ -No old charts were reviewed Differential Diagnosis (chest pain, altered mental status, abdominal pain women, abdominal pain men, vaginal bleeding, weakness, fever, dyspnea, syncope, headache, dizziness, GI bleed, back pain, seizure, CVA, palpatations, mental health, musculoskeletal)? @ -COVID 19, RSV, influenza, pneumonia, acute bronchitis, URI, this list is not all inclusive EKG interpreted by me (3pts min.). @ -[None X-rays interpreted by me (1pt min.). @ -None done CT interpreted by me (1pt min.). @ -None done U/S interpreted by me (1pt. min.). @ -None done What testing was considered but not performed or refused? (CT, X-rays, U/S, labs)? Why? @ -None What meds were considered but not given or refused? Why? @ -None Did you discuss the management of the patient with other professionals (professionals i.e. Dr., PA, MANAGER MBA, lab, RT, psych nurse, social science teacher, industrial health engineer, teacher, business services officer, heel caser)? Give summary @ -No Was smoking cessation discussed for >3mins.? @ -No Was critical care preformed (if so, how long)? @ -No Were there social determinants of health that impacted care today? How? (Homelessness, low income, unemployed, alcoholism, drug addiction, transportation, low edu. Level, literacy, decrease access to med. care, penitentiary, rehab)? @ -No Was there de-escalation of care discussed even if they declined (Discuss DNR or withdrawal of care, Hospice)? DNR status @ -No What co-morbidities impacted this encounter? (DM, HTN, Smoking, COPD, CAD, Cancer, CVA, ARF, Chemo, Hep., AIDS, mental health diagnosis, sleep apnea, morbid obesity)? @ -None Was patient admitted / discharged? Hospital course, mention meds given and route, prescriptions, significant lab abnormalities, going to OR and other pertinent info. @ -[Discharge patient is COVID-19 positive. Patient is discharged in stable condition with supportive treatment return parameters herb. Undiagnosed new problem with uncertain prognosis? @ -No Drug Therapy requiring intensive monitoring for toxicity (Heparin, Nitro, Insul in, Cardizem)? @ -No Were any procedures done? @ -No Diagnosis/symptom? @ -[COVID-19, viral sinusitis Acute, or Chronic, or Acute on Chronic? @ -Acute Uncomplicated (without systemic symptoms) or Complicated (systemic symptoms)? @ -Uncomplicated Side effects of treatment? @ -[No Exacerbation, Progression, or Severe Exacerbation? @ -No Poses a threat to life or bodily function? How? (Chest pain, USA, SC, pneumonia, PE, COPD, DKA, ARF, appy, cholecystitis, CVA, Diverticulitis, Homicidal, Suicidal, threat to staff... and all critical care pts) @ -No - Lab Data Lab Results 11/01/23 Range/Units 09:44 Influenza Type A (PCR) Not Detected (Not Detectd) Influenza Type B (PCR) Not Detected (Not Detectd) RSV (PCR) Not Detected (Not Detectd) SARS-CoV-2 (PCR) Detected A (Not Detectd) Disposition Clinical Impression: Viral URI, COVID-19, Acute viral sinusitis Disposition: HOME SELF-CARE Condition: Stable Instructions (If sedation given, give patient instructions): Viral Syndrome (ED) Additional Instructions: Please return to the Emergency Department if symptoms worsen or any other concerns. Is patient prescribed a controlled substance at d/c from ED?: No Referrals: Davian Talley DO [Primary Care Provider] - 1-2 days Time of Disposition: 11:11
== END 2023-11-01 11:16 | disposition home or self-care (01) ==
LOC: EC 09:08
DX: U07.1 COVID-19 (principal); J06.9 Acute upper respiratory infection, unspecified; J01.90 Acute sinusitis, unspecified; K21.9 Gastro-esophageal reflux disease without esophagitis; F17.290 Nicotine dependence, other tobacco product, uncomplicated; Z79.899 Other long term (current) drug therapy; Z88.0 Allergy status to penicillin; Z88.1 Allergy status to other antibiotic agents; Z88.8 Allergy status to other drugs, medicaments and biological substances
CPT/HCPCS: 87636; 99284

== ENCOUNTER 2023-11-24 09:22 | Day surgery (SDC) | payer BC ==
[2023-11-19 12:19] VITALS: BMI 18.3
[2023-11-24 10:11] VITALS: TEMP 97.1
[2023-11-24] MEDS ORDERED: TRIAMCINOLONE ACETONIDE 40 MG/ML 1 ML VIAL ONE (10:41)
[2023-11-24] MEDS ORDERED: IOPAMIDOL M200 10 ML VIAL ONE (10:41)
--- NOTE | 2023-11-24 10:57 | P.PCN ---
Date of Procedure: 11/24/23 Procedure(s) Performed: PREOPERATIVE DIAGNOSIS: 1-lumbar radiculopathy 2-Lumbar spondylosis with Facet arthropathy without myelopathy POSTOPERATIVE DIAGNOSIS: Lumbar radiculopathy 2-Lumbar spondylosis with Facet arthropathy without myelopathy PROCEDURE 1. Lumbar epidural steroid injection under fluoroscopic guidance at the L4-L5 level. 2. Lumbar epidurogram. SURGEON: Minor Elizalde MD Image saved and stored ANESTHESIA: Local EBL: Minimal PROCEDURE INDICATION: The patient with low back pain and radiculitis symptoms unresponsive to conservative treatment. Fluoroscopy was used to optimize visualization of the needle placement and to maximize safety. Patient had excellent relief of greater than 90% with her initial lumbar epidural steroid injection. Her symptoms have progressed and his complaints of numbness and paresthesias along the left lateral armenta and the L5 nerve root distribution. She noted improved activity with physical therapy after the initial epidural injection which lasted greater than 5 weeks. PROCEDURE DESCRIPTION / TECHNIQUE: The patient was seen and identified in the preoperative area. Risks, benefits, complications including but not limited to infections ,bleeding ,allergic reaction to the medications ,nerve damage and not complete pain relief , and alternatives were discussed with the patient. The patient agreed to proceed with the procedure and signed the consent. IV was started, and vital signs were stable. Patient was taken to the OR and time out was completed. The patient was placed in the prone position on procedure table and a pillow was placed under the abdomen to reduce lumbar lordosis. The lumbosacral area was prepped and draped in the usual sterile fashion.ere closely monitored during the procedure. Vital signs was monitered during the entire procedure. Using anterior-posterior fluoroscopy, the L4-L5 interlaminar space was identified and the skin over this site was marked and then infiltrated with 1% lidocaine subcutaneously. Subsequently, a 20-gauge Tuohy epidural needle was inserted and advanced toward the epidural space using the ``Loss of resistance technique and guided by AP and lateral fluoroscopy. The correct needle position in the epidural space was verified with the injection of 2 mL of the water so luble contrast dye Omnipaque 180 contrast and observing an excellent epidurogram with the epidural spread of the dye, after negative aspiration for blood and CSF and in the absence of paresthesias. Again after negative aspiration, a 6 ml mixture containing 40mg kenalog and 5 ml of preservative free Normal Saline was injected and a washout of epidurogram was seen. Needle was withdrawn intact, skin was cleansed, and bandages were applied. COMPLICATIONS: None DISPOSITION / PLANS: The patient was placed in a supine position and transferred to the recovery area in a stable condition for observation. There was no evidence of lower extremity motor or sensory deficit after the procedure. Patient was discharged from the recovery room after meeting discharge criteria. Home discharge instructions were given to the patient by the staff. The patient was reexamined prior to discharge. The patient will schedule a follow up in the clinic in 2-4 weeks.
--- NOTE | 2023-11-24 11:02 | FL ---
EXAMINATION TYPE: FL guided pain mgmt statistic DATE OF EXAM: 11/24/2023 HISTORY: Fluoroscopy time Total dose area product (DAP) in uGy*m?, mGy*cm? (or similar): 0.39404 IMPRESSION: 1. Fluoroscopy time.
[2023-11-24 11:21] VITALS: BP 121/72; PULSE 81
[2023-11-24 11:22] VITALS: RESP 16
== END 2023-11-24 11:20 | disposition home or self-care (01) ==
LOC: ORPAIN 09:22
PROVIDERS: ATTEND Anesthesiology
DX: M47.26 Other spondylosis with radiculopathy, lumbar region (principal); Z88.0 Allergy status to penicillin; Z88.1 Allergy status to other antibiotic agents; Z79.1 Long term (current) use of non-steroidal anti-inflammatories (NSAID)
CPT/HCPCS: 62323; J3301; Q9966

== ENCOUNTER → 2023-12-10 | Outpatient (CLI) | payer BC ==
[2023-12-10 08:57] VITALS: BP 128/62; PULSE 72; RESP 15; TEMP 98.3
--- NOTE | 2023-12-10 13:59 | P.PAINPG ---
PQRS Measure Charge Sheet Comment: HISTORY OF PRESENT ILLNESS: A 53 yr old female w at side presents today w severe and chronic LBP secondary to DDD, spondylosis and facet arthropathy for evaluation s/p NANCY L4-5 #2. Pt states she experienced 70 % pain relief x 3 wks s/p procedure. Pt states pain level is provoked at 2 /10 in intensity, constant, localized in the lower lumbar spine, predominantly axial, sharp in character w occasional shooting pain towards the L buttocks and LLE. Pain is provoked by standing/ walking for periods > 20 min, and lifting. Pain was provoked by PT x 4 wks in Apr 2023. Pain was alleviated slightly by physician guided stretches 4-5 times weekly since Apr 2023, heat, medications, topicals, repositioning and rest. Oswestry axial pain score at 18. Interventional procedures include NANCY L5-S1 x1, NANCY L4-L5 x1 Medications include Ibu REVIEW OF ORGAN SYSTEMS: CONSTITUTIONAL: No fevers or chills. No recent weight loss. NEUROLOGICAL: + numbness and tingling along the distal extremities. No seizure disorders or headaches. MUSCULOSKELETAL: + pain PSYCHIATRIC: Denies current depression or suicidal thoughts. Physical Examinations : Constitutional : Cooperative , not in acute distress . Neurologic : Cranial nerve II to XII intact. No focal neurological deficits. Psychiatric : alert & oriented x 3. Matching mood & appropriate affect. Judgment & insight intact. Musculoskeletal : Cervical Spine Motor strength in the deltoid and biceps: Normal right side. Normal Left side Motor strength biceps and the wrist extensors: Normal right side . Normal left side Motor strength in the triceps muscle: Normal right side. Normal left side Deep tendon reflexes: Normal at the biceps. Normal at Brachioradialis. Normal at triceps Vertebral body tenderness to deep palpation over Cervical facet loading test: positive bilaterally Spurling test: positive bilaterally Neck distraction test: positive bilaterally Berna sign: positive bilaterally Lumbar spine Motor strength lower extremities ,thigh and legs 5/5 Right side , 5/5 Left side Deep tendon reflexes : Normal Knee Jerk. Normal Ankle Jerk Vertebral body tenderness Madrigal Test positive over L L5-S1 Lumbar facet Loading Test: positive Right / positive Left Range of motion of the lumbar spine Flexion 30 degrees, extension 10 degrees Straight Leg Raise test: Left/ Right positive at degree Magnus test: positive right / positive left. Severe tenderness over the Sacroiliac joint on the Right / Left sides Gaenslen test: positive bilaterally Seated flexion test: positive bilaterally. Sacral spine : Severe tenderness over the Sacroiliac joint: right side / left side Range of motion: Flexion of the lumbar spine <60 degrees Range of motion: Extension of the lumbar spine <20 degrees Gaenslen's Test positive Magnus test: positive right side / le ft side Thigh Thrust Test Sacral Thrust Test Imaging: Lumbar x-ray from 04/06/23 reviewed L hip x-ray from 06/29/23 reviewed MRI noncontrast of the lumbar spine from 07/07/23 reviewed Assessment/ Plan : Lumbar DDD Will manage residual pain and may RTC on an as needed basis. All questions answered. I have spent greater than 30 minutes on patient care today. Dr Dior was available by phone for the evaluation of this patient. The time was used to review the medical records including relevant urine studies and Prescription history (MAPs), review of the available imaging, evaluation and examination of the patient, coordination of care with the medical staff and if applicable referring physicians, as well as creation of the medical record PQRS Narrative: Smoking Status Current every day smoker Hx Alcohol Use (MH) No Home Medications: Ambulatory Orders Ibuprofen [Motrin Ib] 200 mg PO Q8H PRN 08/27/23 Controlled Substance Measures - Controlled Substance Measures Is patient prescribed a controlled substance at discharge?: No
== END ==
LOC: PNWHC3 07:48
PROVIDERS: ATTEND Specialist
DX: M51.37 Other intervertebral disc degeneration, lumbosacral region (principal); F17.200 Nicotine dependence, unspecified, uncomplicated; Z88.0 Allergy status to penicillin; Z88.1 Allergy status to other antibiotic agents; Z88.8 Allergy status to other drugs, medicaments and biological substances
CPT/HCPCS: 99211

== ENCOUNTER → 2024-03-01 | Outpatient (CLI) | payer BC ==
--- NOTE | 2024-03-01 19:45 | XR ---
EXAMINATION TYPE: XR thoracic spine complete DATE OF EXAM: 03/01/2024 5:18 PM CLINICAL INDICATION:Female, 53 years old with history of M542,[id number] CERVICALGIA,THOR PAIN; [facility] COMPARISON: None TECHNIQUE: XR thoracic spine complete views of the spine in Frontal and lateral projections. FINDINGS: No evidence of acute fracture. There is scattered multilevel disk space narrowing without loss of ve rtebral body height. There is mild dextroscoliotic alignment of the thoracic vertebral bodies. Scatte red osteophyte formation along the anterior and lateral aspects of the vertebral bodies. Neural mauricio en are patent given limitations of this exam. Spinal canal appears patent. IMPRESSION: 1. No acute osseous pathology. 2. [id number] multilevel degeneration changes of the spine.
--- NOTE | 2024-03-01 19:46 | XR ---
EXAMINATION TYPE: XR cervical spine comp DATE OF EXAM: 03/01/2024 5:18 PM CLINICAL INDICATION:Female, 53 years old with history of M542,M546 CERVICALGIA,THOR PAIN; COMPARISON: None TECHNIQUE: The cervical spine was imaged in frontal, lateral, odontoid and bilateral oblique. FINDINGS: The osseous structures show normal alignment without evidence of an acute fracture. There are minimal osteophytes noted throughout the cervical spine on the anterior and lateral aspects of the vertebral bodies. The intervertebral disk spaces are narrowed at multiple levels. Pedicles are intact. Soft t issues are within normal limits. The odontoid appears intact. IMPRESSION: 1. No fracture or dislocation. 2. Mild degenerative disc disease changes of the cervical spine.
== END | disposition home or self-care (01) ==
LOC: RADXRYALE 10:20
PROVIDERS: ATTEND Family Medicine
DX: M54.6 Pain in thoracic spine (principal); M50.30 Other cervical disc degeneration, unspecified cervical region; M25.78 Osteophyte, vertebrae
CPT/HCPCS: 72050; 72072

== ENCOUNTER → 2024-03-11 | Outpatient (CLI) | payer BC ==
--- NOTE | 2024-03-11 17:00 | CT ---
EXAMINATION TYPE: CT cervical spine wo con CT DLP: 324 mGycm, Automated exposure control for dose reduction was used. DATE OF EXAM: 03/11/2024 3:19 PM COMPARISON: None. CLINICAL INDICATION:Female, 53 years old with history of M54.2 CERVICALGIA; [facility], neck pain, no injury TECHNIQUE: Axial CT images from the skull base to the inferior aspect of T2 we obtained without intra venous contrast. Coronal and sagittal reformatted images were also reviewed. Contrast used: mL of , (if blank None) Oral contrast used: (if blank None) FINDINGS: Fracture: None. Osseous structures: Minimal osteophyte formation and facet and uncovertebral joint arthropathy throug hout the visualized spine. Findings worse at C5-C6. Vertebral alignment: Alignment within normal limits. Spinal canal/Neural Foramina: No evidence of significant spinal canal narrowing. Facet joint uncovert ebral joint arthropathy scattered throughout the cervical spine with varying degrees of neural forami nal stenosis. C5-C6 with [id number] neural foraminal stenosis bilaterally. No other significant areas of stenosis identified. Neck soft tissues: Prevertebral soft tissues are within normal limits. Other: The airway is patent. Centrilobular emphysema changes in the lungs. IMPRESSION: 1. No evidence of cervical spine fracture. 2. Mild multilevel degenerative disc disease.
== END | disposition home or self-care (01) ==
LOC: RADCTMAIN 15:01
PROVIDERS: ATTEND Family Medicine
DX: M54.6 Pain in thoracic spine (principal); M50.30 Other cervical disc degeneration, unspecified cervical region
CPT/HCPCS: 72125

== ENCOUNTER → 2024-07-19 | Outpatient (CLI) | payer BC ==
--- NOTE | 2024-07-19 10:06 | XR ---
EXAMINATION TYPE: XR lumbosacral spine min 4V DATE OF EXAM: 07/19/2024 9:36 AM COMPARISON: 04/06/2023 CLINICAL INDICATION: Female, 53 years old with history of [id number],[id number],[id number] LBP,SOB,COPD; [facility] TECHNIQUE: XR lumbosacral spine min 4V - Frontal, lateral , bilateral oblique and coned in L5-S1 late ral views of the spine. FINDINGS: No evidence of any acute osseous pathology. No evidence of loss of vertebral body height i s seen. There is normal alignment of the lumbar vertebral bodies. Mild scattered disc space narrowing . Multilevel marginal osteophyte formation throughout the visualized spine. There is facet joint arth ropathy throughout the spine. Scattered at least mild neural foraminal stenosis. IMPRESSION: 1. No acute fracture. 2. Mild multilevel disc degeneration. [facility], , 07/19/2024 10:03 AM
--- NOTE | 2024-07-19 10:19 | XR ---
EXAMINATION TYPE: XR chest 2V DATE OF EXAM: 07/19/2024 9:36 AM COMPARISON: None CLINICAL INDICATION: Female, 53 years old with history of M5450,[id number],J441 LBP,SOB,COPD; [facility] TECHNIQUE: XR chest 2V Frontal and lateral views of the chest. FINDINGS: Lungs/Pleura: There is no evidence of pleural effusion, focal consolidation, or pneumothorax. Pulmonary vascularity: Unremarkable. Heart/mediastinum: Cardiomediastinal silhouette is unremarkable. Musculoskeletal: No acute osseous pathology. IMPRESSION: No acute cardiopulmonary disease/process. [facility], , 07/19/2024 10:17 AM
== END | disposition home or self-care (01) ==
LOC: RADXRYALE 09:08
PROVIDERS: ATTEND Family Medicine
DX: M47.816 Spondylosis without myelopathy or radiculopathy, lumbar region (principal); J44.1 Chronic obstructive pulmonary disease with (acute) exacerbation; R06.02 Shortness of breath
CPT/HCPCS: 71046; 72110